=== PATIENT | male | born 1950 | race Caucasian/White ===

== ENCOUNTER 2016-07-20 10:07 | Observation (INO) | payer MEDICARE, OTHER ==
--- NOTE | ~2016-07-20 | HP ---
History And Physical [place] [id number] [facility] [place]. [address] NAME: LIONEL BEAVERS : 46 STATUS : ADM Tl PAT#: [id number] AGE: 65 ADM/REG DATE : 07/20/16 MR#: [id number] REPORT SERV DATE: 07/20/16 DICTATED BY: DIANA KIRAN DATE: 07/20/16 REPORT STATUS : Draft TRANSCRIBED BY: MADHU DATE: 07/20/16 DATE OF ADMISSION: 07/20/2016 CHIEF COMPLAINT: Atypical chest pain. HISTORY OF PRESENT ILLNESS: This is a very pleasant 65-year-old white gentleman with no known history of CAD, states that over the past two weeks he has had episodic chest pain described as "sharp" in his mid chest that does not radiate elsewhere. He does not feel there is any pattern to his chest pain either with meals or with exertion. At its most intense, he rates the chest pain a 12/10. At the time of interview in the ER, he is pain free. He states the episodes last less than 10 minutes. He describes associated diaphoresis and belching. Denies shortness of breath, nausea, or dizziness. [facility] They recommended that he come to the ER for further evaluation and treatment. The patient denies any personal history of myocardial infarction, stroke, DVT, or pulmonary embolus. The patient denies any recent fever or chills. No palpitations. No syncopal episodes. Denies PND or orthopnea. PAST MEDICAL HISTORY: 1. Hypertension. 2. Borderline dyslipidemia. 3. Seasonal allergies. 4. Denies diabetes. 5. Occasional GERD, reports hiatal hernia and ventral hernia. 6. Remote tobacco abuse. 7. A recent weight loss of 30 pounds with [employer]. SURGICAL HISTORY: 1. Right total knee. 2. Tonsillectomy. 3. Arthroscopic repair of left knee. SOCIAL HISTORY: He is with two children. He is retired. He and his are currently moving into their new home, so he is relocating boxes and moving and working strenuously around his house without incident. Quit smoking in 1999. Prior to that, was less than two packs per day for 10 years. Denies alcohol or illicits. FAMILY HISTORY: Brother with CAD and stents at 71; otherwise, no embolic events reported in first-degree relatives at an early age. REVIEW OF SYSTEMS: A 14-point review of systems performed, significant for HPI including recent weight loss of 30 pounds with the use of [employer]; otherwise, complete review of systems obtained and negative. History And Physical [place] [address] [place]. [address] NAME: LIONEL BEAVERS : 46 STATUS : ADM Tl PAT#: [id number] AGE: 65 ADM/REG DATE : 07/20/16 MR#: [id number] REPORT SERV DATE: 07/20/16 DICTATED BY: DIANA KIRAN DATE: 07/20/16 REPORT STATUS : Draft TRANSCRIBED BY: MADHU DATE: 07/20/16 ALLERGIES: ALLERGY TO PENICILLIN. HOME MEDICATIONS: Hydrochlorothiazide 25 mg daily. PHYSICAL EXAMINATION: BLOOD PRESSURE: 168/85. PULSE: 54. RESPIRATORY RATE: 16. TEMPERATURE: 98.3. O2 saturation 97% on room air. HEIGHT: 5 feet 9 inches. WEIGHT: 189 pounds. GENERAL: Cooperative, in no apparent distress. HEENT: Pupils 2 mm, sclera nonicteric. Nares patent. Moist mucous membranes. No xanthelasma. NECK: Trachea midline, no thyromegaly. No JVD. No bruits. LYMPH: No cervical lymphadenopathy. No supraclavicular lymphadenopathy. RESPIRATORY: Unlabored respirations. Breath sounds clear bilaterally to posterior auscultation. No wheezes or rhonchi. CARDIOVASCULAR: Regular rate. No murmur, rub or gallop appreciated. Extremities without edema. Pulses 2+ bilaterally. ABDOMEN: Soft, nontender, nondistended, normal bowel sounds auscultated throughout. No organomegaly. SKIN: Warm, dry extremities. No pallor, or cyanosis. PSYCHIATRIC: Appropriate affect. Alert, oriented x3. LABORATORY DATA: Troponin less than 0.02, second and third pending. Potassium 3.9, BUN 13, creatinine 1.10, glucose 97, magnesium 2.1. WBC 4.1, hemoglobin 16.2, hematocrit 47.7, platelet count 155,000. EKG: Sinus bradycardia. ASSESSMENT AND PLAN: 1. Atypical chest pain, questionable gastrointestinal component. The patient will be observed in the CPOU overnight to rule out myocardial infarction with serial enzymes and serial EKGs. If troponin is negative x3 and EKG remains stable, the patient will be held n.p.o. after midnight for MPI in the morning. The patient will be discharged home if low risk, no ischemia; to follow up with PCP in one to two weeks. If anything suggestive of ischemia, Cardiology referral will be initiated. 2. Hypertension. Monitor blood pressure and continue hydrochlorothiazide. 3. Questionable gastrointestinal component. We will add Protonix 40 mg daily. If stress test negative, would recommend outpatient GI workup. TORO/MADHU Diana Kiran, MSN, PARADICHLOROBENZENE TENDER- / [id number] CC: Satnam Mckinney M.D.
[2016-07-20 10:32] LABS: BASOPHILS 0.5 %; BASOPHILS ABSOLUTE 0.02 10/3/uL (0.0-0.16); EOSINOPHILS 1.7 %; EOSINOPHILS ABSOLUTE 0.07 10/3/uL (0.0-0.53); HEMATOCRIT 47.7 % (40.0-51.0); HEMOGLOBIN 16.2 g/dL (13.6-17.8); IMMATURE GRANULOCYTES 0.2 %; IMMATURE GRANULOCYTES ABSOLUTE 0.01 10/3/uL (0.0-0.11); LYMPHOCYTES 26.9 %; LYMPHOCYTES ABSOLUTE 1.11 10/3/uL (0.67-4.30); MEAN CORPUSCULAR VOLUME 91.2 fL (80-100); MEAN PLATELET VOLUME 9.7 fL (9.2-13.0); MONOCYTES 6.1 %; MONOCYTES ABSOLUTE 0.25 10/3/uL (0.21-1.20); NEUTROPHILS 64.6 %; NEUTROPHILS ABSOLUTE 2.67 10/3/uL (2.02-8.40); PLATELET COUNT 155 10/3/uL (150-400); RBC DISTRIBUTION WIDTH 12.9 % (12.0-16.0); RED CELL COUNT 5.23 10/6/uL (4.7-6.1); WHITE BLOOD CELLS 4.1 10/3/uL (4.5-10.5)
[2016-07-20 10:34] LABS: MANUAL DIFF NO %
[2016-07-20 10:48] LABS: INTERNATIONAL NORMAL RATI 1.1 UNITS (-); PARTIAL THROMBO TIME 28.7 SEC (22.5-37.2); PROTIME (NOT ORD) 14.1 SEC (12.0-14.5)
[2016-07-20 10:51] LABS: BUN (BLOOD UREA NITROGEN) 13 MG/DL (6-23); CALCIUM, SERUM 8.8 MG/DL (8.5-10.4); CHEST PAIN PROFILE TAT 0 Hrs 25 Mins; CHLORIDE, SERUM 104 MMOL/L (96-112); CO2 (CARBON DIOXIDE) 31 MMOL/L (24-34); GFR AFRICAN AMERICAN 80 ML/MIN (>=60); GFR NON AFRICAN AMERICAN 69 ML/MIN (>=60); GLUCOSE, SERUM 97 MG/DL (60-99); POTASSIUM, SERUM 3.9 MMOL/L (3.5-5.3); SODIUM, SERUM 138 MMOL/L (135-148); TROPONIN I <0.02 NG/ML (<0.05)
[2016-07-20] MEDS ORDERED: MAALOX MAX PO (12:37)
[2016-07-20] MEDS ORDERED: HCTZ25B PO (12:37)
[2016-07-20] MEDS ORDERED: ASAEC SL (12:38)
[2016-07-20] MEDS ORDERED: CYANOCOBALAMIN PO (12:39)
== END 2016-07-21 15:21 | disposition home or self-care (01) ==
LOC: ER 10:07 → CDU1 12:44
PROVIDERS: Emergency Medicine
DX: R07.89 Other chest pain (principal); I10 Essential (primary) hypertension; E78.5 Hyperlipidemia, unspecified; K21.9 Gastro-esophageal reflux disease without esophagitis; Z87.891 Personal history of nicotine dependence; J30.2 Other seasonal allergic rhinitis; Z90.89 Acquired absence of other organs; Z98.890 Other specified postprocedural states; Z88.0 Allergy status to penicillin
CPT/HCPCS: 71020; 78452; 80048; 83735; 84484; 85025; 85610; 85730; 93005; 93017; 99285; A9270-GY; A9502; G0378; J0153